=== PATIENT | male | born 1985 ===

== ENCOUNTER 2022-02-06 16:56 | Emergency (ER) | payer SELFPAY ==
[2022-02-06] MEDS ORDERED: ONDANSETRON 4 MG ODT TAB PO ONE (20:52)
[2022-02-06] MEDS ORDERED: IBUPROFEN 600 MG TAB PO ONE (20:52)
[2022-02-06] MEDS ORDERED: HYDROcodone/ACETAMINOPHEN 5-325 MG TAB PO ONE (20:52)
[2022-02-06] MEDS ORDERED: TETANUS,DIPH,PERTUSS(ACELL) VACCINE 0.5 ML SYRINGE IM ONE (20:52)
[2022-02-06] MEDS ORDERED: cephALEXin 500 MG CAP PO ONE (20:53)
[2022-02-06 21:57] VITALS: BP 132/84
--- NOTE | 2022-02-06 22:18 | XRay Report ---
RIGHT FOOT 3 VIEW(S) INDICATION / CLINICAL INFORMATION: FOOT INJURY - PAIN COMPARISON: None available. FINDINGS: BONES / JOINT(S): No acute fracture or subluxation. No significant arthritis. SOFT TISSUES: No significant abnormality. ADDITIONAL FINDINGS: None. Signer Name: Jonathan Bailey DO Signed: 02/06/2022 10:14 PM Workstation Name: [id number]
--- NOTE | 2022-02-06 22:29 | Emergency Department Report ---
ED Lower Extremity HPI - General Chief Complaint: Laceration/Recheck/Suture Stated Complaint: INJURY TO THE RIGHT FOOT Source: patient Mode of arrival: Ambulatory Limitations: No Limitations - History of Present Illness Initial Comments: Patient is a 36-year-old male with no past medical history except [id number] diabetes who presents to the ED with complaint of painful bleeding dorsal lateral right foot laceration wound after a weed eater that he was operating when mowing the lawn accidentally cut through his shoes on the right foot causing extensive laceration on the dorsal lateral area of the right foot about 4 hours ago. Patient states that he is not up-to-date with tetanus vaccination. Patient denies numbness and tingling or weakness of right foot, dizziness, syncope, nausea and vomiting, back pain, fall, change in vision, cough or loss of consciousness. MD Complaint: foot injury (lateral right foot laceration after a weed eater machine cut his shoes and cut his right foot) -: Sudden, hour(s) (4) Injury: Foot: Right (lateral right foot laceration) Type of Injury: laceration Place: home Severity: severe Severity scale (0 -10): 7 Improves With: nothing Worsens With: weight bearing, movement, palpation Context: other (weed eater machine cut right lateral foot when he was mowing lawn) Associated Symptoms: able to partially bear weight. denies: snap/pop sensation, swelling, numbness, tingling, unable to bear weight, ambulatory - Related Data Previous Rx's Medication Instructions Recorded Last Taken Type Ibuprofen [Motrin] 800 mg PO Q8HR PRN #30 tablet 02/06/22 Unknown Rx Sulfamethoxazole/Trimethoprim 1 each PO Q12H #20 tab 02/06/22 Unknown Rx [Bactrim DS TAB] cephALEXin [Keflex] 500 mg PO Q8HR #30 cap 02/06/22 Unknown Rx Allergies Allergy/AdvReac Type Severity Reaction Status Date / Time No Known Allergies Allergy Verified 02/06/22 21:58 ED Review of Systems ROS: Stated complaint: INJURY TO THE RIGHT FOOT Other details as noted in HPI Constitutional: denies: chills, fever Eyes: denies: eye pain, eye discharge, vision change ENT: denies: ear pain, throat pain Respiratory: denies: cough, shortness of breath, wheezing Cardiovascular: denies: chest pain, palpitations Endocrine: no symptoms reported Gastrointestinal: denies: abdominal pain, nausea, diarrhea Genitourinary: denies: urgency, dysuria Musculoskeletal: arthralgia (right foot pain due to an open bleeding laceration on the lateral right foot). denies: back pain, joint swelling Skin: other (Open bleeding laceration of lateral right foot). denies: rash, lesions Neurological: denies: headache, weakness, paresthesias Psychiatric: denies: anxiety, depression Hematological/Lymphatic: denies: easy bleeding, easy bruising ED Past Medical Hx - Past Medical History Previous Medical History?: Yes Hx Diabetes: Yes - Social History Smoking Status: Never Smoker Substance Use Type: None - Medications Home Medications: Home Medications Medication Instructions Recorded Confirmed Last Taken Type Ibuprofen [Motrin] 800 mg PO Q8HR PRN #30 tablet 02/06/22 Unknown Rx Sulfamethoxazole/Trimethoprim 1 each PO Q12H #20 tab 02/06/22 Unknown Rx [Bactrim DS TAB] cephALEXin [Keflex] 500 mg PO Q8HR #30 cap 02/06/22 Unknown Rx ED Physical Exam - General Limitations: No Limitations General appearance: alert, in no apparent distress - Head Head exam: Present: atraumatic, normocephalic, normal inspection - Eye Eye exam: Present: normal appearance, PERRL, EOMI Pupils: Present: normal accommodation - ENT ENT exam: Present: normal exam, normal orophraynx, mucous membranes moist, TM's normal bilaterally, normal external ear exam - Neck Neck exam: Present: normal inspection, full ROM. Absent: tenderness - Respiratory Respiratory exam: Present: normal lung sounds bilaterally. Absent: respiratory distress, wheezes, rhonchi, stridor, chest wall tenderness, accessory muscle use, decreased breath sounds, prolonged expiratory - Cardiovascular Cardiovascular Exam: Present: regular rate, normal rhythm, normal heart sounds. Absent: systolic murmur, diastolic murmur, rubs, gallop - GI/Abdominal GI/Abdominal exam: Present: soft, normal bowel sounds. Absent: distended, guarding, rebound, hyperactive bowel sounds, hypoactive bowel sounds, mass - Extremities Exam Extremities exam: Present: normal inspection, full ROM, tenderness (Palpable lateral right foot tenderness due to an open bleeding 7 cm laceration wound), normal capillary refill. Absent: pedal edema, joint swelling, calf tenderness - Back Exam Back exam: Present: normal inspection, full ROM. Absent: tenderness, CVA tenderness (R), CVA tenderness (L), muscle spasm, paraspinal tenderness - Neurological Exam Neurological exam: Present: alert, oriented X3, CN II-XII intact, normal gait, reflexes normal - Psychiatric Psychiatric exam: Present: normal affect, normal mood - Skin Skin exam: Present: warm, dry, intact, normal color, other (Bleeding 7 cm laceration wound on dorsal lateral right foot). Absent: rash ED Course Vital Signs 02/06/22 02/06/22 17:13 21:55 Temperature 97.8 F 97.9 F Pulse Rate 85 68 Respiratory 18 20 Rate Blood Pressure 130/83 132/84 [Right] O2 Sat by Pulse 99 100 Oximetry - Laceration /Wound Repair Right Dorsal Foot Wound Location: lower extremity (dorsal lteral right foot laceration wound) Wound Length (cm): 7 Wound's Depth, Shape: superficial, linear Wound Explored: contaminated Irrigated w/ Saline (ccs): 300 Betadine Prep?: Yes Anesthesia: 1% Lidocaine Volume Anesthetic (ccs): 12 Wound Debrided: extensive Wound Repaired With: sutures Suture Size/Type: 3:0, proline Number of Sutures: 17 Layer Closure?: No Sterile Dressing Applied?: Yes Progress: The wound was extensively debrided with normal saline and Betadine solutions. Lidocaine 1% solution was infiltrated around the wound for local anesthesia. When anesthesia was fully achieved, the wound was sutured per protocol using Prolene 3-0 sutures for a total of 17 sutures. The wound was then cleaned extensively with normal saline and dressed appropriately with sterile 4 x 4 gauze and Kerlix. Patient tolerated procedure well. Patient was therefore discharged home on pain medication and prophylactic antibiotics and advised to return to the ED in 12 to 14 days for suture removal. ED Lower Extremity MDM - Radiology Data Radiology results: report reviewed, image reviewed [facility] [address] [place] [address] XRay Report Signed Patient: JOCELYN LARA MR#: [id number] : 1985 Acct:[id number] Age/Sex: 36 / M ADM Date: 02/06/22 Loc: ED Attending Dr: Ordering Physician: PRETTY ZAMORA Date of Service: 02/06/22 Procedure(s): XR foot 3+V RT Accession Number(s): [id number] cc: PRETTY ZAMORA Fluoro Time In Minutes: RIGHT FOOT 3 VIEW(S) INDICATION / CLINICAL INFORMATION: FOOT INJURY - PAIN COMPARISON: None available. FINDINGS: BONES / JOINT(S): No acute fracture or subluxation. No significant arthritis. SOFT TISSUES: No significant abnormality. ADDITIONAL FINDINGS: None. Signer Name: Jonathan Marks DO Signed: 02/06/2022 10:14 PM Workstation Name: [id number] Transcribed By: EMMY Dictated By: JONATHAN MARKS DO Electronically Authenticated By: JONATHAN MARKS DO Signed Date/Time: 02/06/222213 DD/ 12 TD/TT: - Medical Decision Making This is a 36-year-old male with no past medical history except wqt-[id number]-[id number] diabetes who presents to the ED with complaint of painful bleeding dorsal lateral right foot laceration wound after a weed eater that he was operating when mowing the lawn accidentally cut through his shoes on the right foot causing extensive laceration on the dorsal lateral area of the right foot about 4 hours ago. Patient states that he is not up-to-date with tetanus vaccination. In the ED, patient is alert and oriented x3 and is not in any distress. Patient was treated for pain in the ED and also received booster tetanus vaccination in the ED. Right foot x-ray showed no acute fractures or subluxations. The dorsal lateral right foot laceration wound was extensively debrided with normal saline and Betadine solutions. The wound was then sutured per protocol using lidocaine 1% solution as a local anesthetic and also using Prolene 3-0 sutures for a total of 17 sutures. Patient tolerated the procedure well. The wound was then dressed appropriately and the patient was discharged home on pain medications and prophylactic antibiotics and was advised to follow-up with his primary care physician in 7 to 10 days for reevaluation or return to the ED immediately if symptoms get worse. Patient was also advised to return to the ED or to his primary care physician in 12 to 14 days for suture removal. - Differential Diagnosis Foot laceration; foot contusion; foot sprain; foot injury Critical care attestation.: If time is entered above; I have spent that time in minutes in the direct care of this critically ill patient, excluding procedure time. ED Disposition Clinical Impression: Laceration of dorsum of right foot, Contusion of right foot, initial encounter Disposition: HOME / SELF CARE / HOMELESS Is pt being admited?: No Does the pt Need Aspirin: No Condition: Stable Instructions: Foot Contusion, [id number], Crush Injury of the Foot, [id number], Laceration Care, Adult, [id number], Sutures, Kayla, or Adhesive Wound Closure, [id number], Sutured Wound Care, [id number] Additional Instructions: La radiografa del pie derecho no mostr fracturas agudas ni subluxaciones. Por lo tanto, tome los medicamentos con alimentos, britney muchos lquidos, kirt un seguimiento con mann mdico de atencin primaria en 7 a 10 nieves para stuart reevaluacin. Regrese al servicio de urgencias inmediatamente si los sntomas empeoran. De lo contrario, regrese al servicio de urgencias o a mann mdico de atencin primaria en 12 a 14 nieves para que le retiren las suturas. Prescriptions: Sulfamethoxazole/Trimethoprim [Bactrim DS TAB] 1 each PO Q12H #20 tab cephALEXin [Keflex] 500 mg PO Q8HR #30 cap Ibuprofen [Motrin] 800 mg PO Q8HR PRN #30 tablet PRN Reason: Pain , Severe (7-10) Referrals: ТАТЬЯНА MCKEON MD [Primary Care Provider] - 3-5 Days Forms: Work/School Release Form(ED) Time of Disposition: 22:34 Print Language: SOUTH SUDANESE
== END 2022-02-07 00:03 | disposition home or self-care (01) ==
LOC: ED 16:56
DX: S91.311A Laceration without foreign body, right foot, initial encounter (principal); E11.9 Type 2 diabetes mellitus without complications; Z79.899 Other long term (current) drug therapy; W26.8XXA Contact with other sharp object(s), not elsewhere classified, initial encounter; Y93.89 Activity, other specified; Y92.89 Other specified places as the place of occurrence of the external cause; Y99.8 Other external cause status
CPT/HCPCS: 82962; 90471; 90715; 99283; J3490; Q0162